=== PATIENT | female | born 1950 | race Caucasian/White ===

== ENCOUNTER 2017-11-20 06:24 | Day surgery (SDC) | payer OTHER ==
[~2017-11-20 06:24] MED LIST: CLONAZEPAM2 MG PO; IBESARTAN PO; RAMITIDINE PO; SYNTHROID75 MCG PO
== END 2017-11-20 16:25 | disposition home or self-care (01) ==
LOC: CIR.AMB 06:24
DX: M65.822 Other synovitis and tenosynovitis, left upper arm (principal)